=== PATIENT | female | born 1990 | race Caucasian/White ===

== ENCOUNTER 2019-06-01 10:04 | Emergency (ER) | payer MEDICARE, OTHER ==
[~2019-06-01] VITALS: Ht 165.1 cm; Wt 63.5 kg
--- OUTSIDE RECORDS SUMMARY | 2019-06-01 10:07 | XMS REPORT ---
[facility] Address Unknown Phone Unavailable Care Team Providers Care Last Picker Name Role Phone Unavailable Unavailable Payers Payer Name Policy Type Policy Number Effective Date Expiration Date Problems This patient has no known problems. Allergies, Adverse Reactions, Alerts Allergy Name Allergy Type Status Severity Reaction(s) Onset Date Inactive Date Treating Clinician Comments oxcarbazepine DA Active U 2018-07-29 00:00:00 amitriptyline DA Active U 2017-12-22 00:00:00 quetiapine DA Active U 2017-12-22 00:00:00 Medications This patient has no known medications. Results Test Description Test Time Test Comments Text Results Atomic Results Result Comments - CT ABD PELVIS W/CONT 2019-05-10 15:59:00 Patient Name: MONIQUE MIGUEL Unit No: [id number] EXAMS: CPT CODE: [id number] CT ABD PELVIS W/CONT 86334 Reason: abd pain Technique: Routine 5 mm transverse images through the abdomen and pelvis were acquired following the administration of 80 mL Isovue-300 intravenous contrast. Oral contrast was not administered. FINDINGS: Lack of oral contrast reduces ability to detect bowel related findings. Lung bases are clear. Visualized portions of heart and pericardium demonstrate nothing unusual. In the abdomen, the liver and spleen are normal in size and attenuation without focal abnormality. Gallbladder, common bile duct, pancreas, adrenal glands, abdominal aorta and kidneys demonstrate nothing unusual. There is no retroperitoneal or mesenteric adenopathy. There are no dilated loops of bowel. No ascites. No free intraperitoneal air identified. In the pelvis, urinary bladder is unremarkable. Uterus is anteverted and anteflexed. No free fluid is identified within the pelvis. No pelvic adenopathy. IMPRESSION: No acute inflammatory process identified within abdomen or pelvis. Lack of IV contrast reduces ability to detect abnormalities involving loops of bowel. No abnormal masses. No focal fluid collections. No ascites. No free intraperitoneal air. at 1559 Reported and signed by: Rafa Hodges MD CC: Erwin Causey MD; Malia Howard DO Technologist: Axel Pablo CT; Flaco Matthews CT Trscrpt Dt/ ([id number] Orig Print D/T: S: 05/10/2019 (4302) CTDI: DLP: [facility] NAME: MONIQUE MIGUEL [address] [facility] PHYS: [place] [phone] : 1990 AGE: 28 SEX: F LOC: [facility] PHONE #: [phone] EXAM DATE: 05/10/2019 STATUS: REG ER FAX #: RAD NO: DC Dt: PAGE 1 Signed Report - US TRANSVAGINAL NON OB 2019-05-10 14:48:00 Patient Name: MONIQUE MIGUEL Unit No: [id number] EXAMS: CPT CODE: [id number] [place] [address] INDICATION: Left lower quadrant pain TECHNIQUE: Multiple trans-abdominal and endovaginal ultrasound images of the pelvis were obtained. FINDINGS: The uterus measures 7.5 x 3.5 x 3.8 cm and has a normal myometrial echotexture. The endometrial echo complex measures 2 mm. The right ovary measures 4.1 x 2.5 x 2.7 cm, with normal color and spectral Doppler flow. Within the right ovary, as there is a 3.3 x 2.1 x 2.1 cm cyst with internal septation. There is no associated nodularity or vascu larity. The left ovary measures 2.6 x 1.6 x 1.5 cm, and has a normal echotexture with a few follicles within it. Normal color Doppler flow within the left ovarian parenchyma. No adnexal masses. Tiny fluid noted in the cul-de-sac. IMPRESSION: 1. Normal appearance of the left ovary. 2. Prominent cyst in the right ovary measures 3.3 cm. 3. Tiny free fluid appreciated. at 1447 Reported and signed by: Armando Rios MD CC: Erwin Causey MD; Malia Howard DO Technologist: Sarah Bolden US ; [id number] 02/16 Trnscrbd D/ (1628) [id number].[email or web address].[id number] Orig Print D/T: S: 05/10/2019 (0411) Probe: [facility] NAME: MONIQUE MIGUEL [address] PHYS: [place] [phone] : 1990 AGE: 28 SEX: F LOC: [place] PHONE #: [phone] EXAM DATE: 05/10/2019 STATUS: REG ER FAX #: RAD NO: Page 1 Signed Report - US PELVIC COMPLETE 2019-05-10 14:48:00 Patient Name: MONIQUE MIGUEL Unit No: [id number] EXAMS: CPT CODE: [id number] US PELVIC COMPLETE 62512 INDICATION: Left lower quadrant pain TECHNIQUE: Multiple trans-abdominal and endovaginal ultrasound images of the pelvis were obtained. FINDINGS: The uterus measures 7.5 x 3.5 x 3.8 cm and has a normal myometrial echotexture. The endometrial echo complex measures 2 mm. The right ovary measures 4.1 x 2.5 x 2.7 cm, with normal color and spectral Doppler flow. Within the right ovary, as there is a 3.3 x 2.1 x 2.1 cm cyst with internal septation. There is no associated nodularity or vascu larity. The left ovary measures 2.6 x 1.6 x 1.5 cm, and has a normal echotexture with a few follicles within it. Normal color Doppler flow within the left ovarian parenchyma. No adnexal masses. Tiny fluid noted in the cul-de-sac. IMPRESSION: 1. Normal appearance of the left ovary. 2. Prominent cyst in the right ovary measures 3.3 cm. 3. Tiny free fluid appreciated. at 1442 Reported and signed by: Armando Rios MD CC: Erwin Causey MD; Malia Howard DO Technologist: Sarah Bolden Trnscrbd D/ (9645) t.[email or web address].MMC3 Orig Print D/T: S: 05/10/2019 (1963) Probe: [facility] NAME: MONIQUE MIGUEL [address] PHYS: [place] [id number] : 1990 AGE: 28 SEX: F LOC: [place] PHONE #: [phone] EXAM DATE: 05/10/2019 STATUS: REG ER FAX #: RAD NO: Page 1 Signed Report UA RFLX MICROSCOPIC CULTURE 2019-05-10 13:31:00 UA COLOR (test code=COLU) YELLOW YELLOW UA APPEARANCE (test code=APPU) HAZY CLEAR UA GLUCOSE DIPSTICK (test code=DGLUU) NEGATIVE mg/dL NEGATIVE UA BILIRUBIN DIPSTICK (test code=BILU) NEGATIVE NEGATIVE UA KETONE DIPSTICK (test code=KETU) NEGATIVE mg/dL NEGATIVE UA SPECIFIC GRAVITY (test code=SGU) 1.020 1.001-1.035 UA BLOOD DIPSTICK (test code=NEEL) 2+ NEGATIVE UA PH DIPSTICK (test code=TIEN) 5.0 5.5-7.0 UA PROTEIN DIPSTICK (test code=PROU) NEGATIVE mg/dL NEGATIVE UA UROBILINOGEN DIPSTICK (test code=URO) NORMAL mg/dL NORMAL UA NITRITE DIPSTICK (test code=YARI) NEGATIVE NEGATIVE UA LEUKOCYTE ESTERASE DIPSTICK (test code=LEUU) NEGATIVE NEGATIVE UA COMMENT (test code=COMU) VOLUME 10-12 ML URINE SPECIMEN DESCRIPTION (test code=UASPEC) Clean Catch UA WBC (test code=WBCU) < 10 #/hpf <10 UA SQUAMOUS CELLS (test code=SQU) 20 - 40 #/lpf <100 UA CULTURE NEEDED? (test code=UACULT) Criteria not met UA [id number] 13:31:00* Test Item Value Reference Range Comments UA RBC (test code=RBCU) 0-2 #/hpf NONE SEEN UA MUCUS (test code=MUCU) RARE #/lpf NONE SEEN COMPREHENSIVE METABOLIC [id number] 13:28:00* Test Item Value Reference Range Comments SODIUM (test code=NA) 139 MMOL/L 133-145 POTASSIUM (test code=K) 4.2 MMOL/L 3.6-5.2 CHLORIDE (test code=CL) 105 MMOL/L 100-108 CARBON DIOXIDE (test code=CO2) 27 MMOL/L 22-32 GLUCOSE (test code=GLU) 91 MG/DL 65-99 Results of this assay method may be falsely depressed orelevated if patient is taking sulfasalazine. BLOOD UREA NITROGEN (test code=BUN) 15 MG/DL 6-20 GLOMERULAR FILTRATION RATE (test code=GFR) 54 71-165 Reporting units: mL/min/1.73m\S\2 (Modified MDRD Formula) CREATININE (test code=CREAT) 1.18 MG/DL 0.60-1.00 TOTAL PROTEIN (test code=PROT) 6.7 G/DL 6.4-8.2 ALBUMIN (test code=ALB) 3.8 G/DL 3.4-5.0 GLOBULIN (test code=GLOB) 2.9 G/DL 1.5-3.8 ALBUMIN/GLOBULIN RATIO (test code=A/G) 1.3 1.1-2.2 CALCIUM (test code=CA) 8.5 MG/DL 8.7-10.5 BILIRUBIN TOTAL (test code=BILT) 0.1 MG/DL 0.0-1.0 SGOT/AST (test code=AST) 21 Units/L 15-37 Results of this assay method may be falsely depressed orelevated if patient is taking sulfasalazine. SGPT/ALT (test code=ALT) 29 Units/L 30-65 Results of this assay method may be falsely depressed orelevated if patient is taking sulfasalazine. ALKALINE PHOSPHATASE TOTAL (test code=ALKP) 53 Units/L 50-136 [id number] 13:28:00* Test Item Value Reference Range Comments LIPASE (test code=LIP) 100 Units/L 73-393 HCG SERUM [id number] 13:18:00* Test Item Value Reference Range Comments HCG SERUM QUAL (test code=HCGQL) NEGATIVE NEGATIVE False negatives may occur when levels of hCGare below 10 mIU/ml. When is still suspected, a new specimenshould be obtained after 48 hours and re-tested.If waiting 48 hours is not medically advisable,the test result should be confirmed using aquantitative hCG assay. UA RFLX MICROSCOPIC [id number] 13:14:00* Test Item Value Reference Range Comments UA COLOR (test code=COLU) YELLOW YELLOW UA APPEARANCE (test code=APPU) HAZY CLEAR UA GLUCOSE DIPSTICK (test code=DGLUU) NEGATIVE mg/dL NEGATIVE UA BILIRUBIN DIPSTICK (test code=BILU) NEGATIVE NEGATIVE UA KETONE DIPSTICK (test code=KETU) NEGATIVE mg/dL NEGATIVE UA SPECIFIC GRAVITY (test code=SGU) 1.020 1.001-1.035 UA BLOOD DIPSTICK (test code=NEEL) 2+ NEGATIVE UA PH DIPSTICK (test code=TIEN) 5.0 5.5-7.0 UA PROTEIN DIPSTICK (test code=PROU) NEGATIVE mg/dL NEGATIVE UA UROBILINOGEN DIPSTICK (test code=URO) NORMAL mg/dL NORMAL UA NITRITE DIPSTICK (test code=YARI) NEGATIVE NEGATIVE UA LEUKOCYTE ESTERASE DIPSTICK (test code=LEUU) NEGATIVE NEGATIVE UA COMMENT (test code=COMU) VOLUME 10-12 ML URINE SPECIMEN DESCRIPTION (test code=UASPEC) Clean Catch UA WBC (test code=WBCU) #/hpf <10 UA SQUAMOUS CELLS (test code=SQU) #/lpf <100 UA CULTURE NEEDED? (test code=UACULT) UA [id number] 13:14:00* Test Item Value Reference Range Comments UA RBC (test code=RBCU) #/hpf NONE SEEN UA RFLX MICROSCOPIC [id number] 13:14:00* Test Item Value Reference Range Comments UA COLOR (test code=COLU) YELLOW YELLOW UA APPEARANCE (test code=APPU) HAZY CLEAR UA GLUCOSE DIPSTICK (test code=DGLUU) NEGATIVE mg/dL NEGATIVE UA BILIRUBIN DIPSTICK (test code=BILU) NEGATIVE NEGATIVE UA KETONE DIPSTICK (test code=KETU) NEGATIVE mg/dL NEGATIVE UA SPECIFIC GRAVITY (test code=SGU) 1.020 1.001-1.035 UA BLOOD DIPSTICK (test code=NEEL) 2+ NEGATIVE UA PH DIPSTICK (test code=TIEN) 5.0 5.5-7.0 UA PROTEIN DIPSTICK (test code=PROU) NEGATIVE mg/dL NEGATIVE UA UROBILINOGEN DIPSTICK (test code=URO) NORMAL mg/dL NORMAL UA NITRITE DIPSTICK (test code=YARI) NEGATIVE NEGATIVE UA LEUKOCYTE ESTERASE DIPSTICK (test code=LEUU) NEGATIVE NEGATIVE UA COMMENT (test code=COMU) VOLUME 10-12 ML URINE SPECIMEN DESCRIPTION (test code=UASPEC) Clean Catch UA WBC (test code=WBCU) #/hpf <10 UA SQUAMOUS CELLS (test code=SQU) #/lpf <100 UA CULTURE NEEDED? (test code=UACULT) UA [id number] 13:14:00* Test Item Value Reference Range Comments UA RBC (test code=RBCU) #/hpf NONE SEEN CBC W/AUTO [id number] 13:10:00* Test Item Value Reference Range Comments WHITE BLOOD CELL (test code=WBC) 5.85 x10 3/uL 4.80-10.80 RED BLOOD CELL (test code=RBC) 3.73 x10 6/uL 4.2-5.4 HEMOGLOBIN (test code=HGB) 12.8 G/DL 12.0-16.0 HEMATOCRIT (test code=HCT) 37.7 % 37-47 MEAN CELL VOLUME (test code=MCV) 101.1 FL 81-99 MEAN CELL HGB (test code=MCH) 34.3 PG 27-31 MEAN CELL HGB CONCENTRATION (test code=MCHC) 34.0 G/DL 33-37 RED CELL DISTRIBUTION WIDTH (test code=RDW) 12.1 % 11.5-14.5 PLATELET COUNT (test code=PLT) 235 x10 3/uL 150-450 MEAN PLATELET VOLUME (test code=MPV) 9.5 FL 7.4-10.4 NEUTROPHIL % (test code=NT%) 41.9 % 42-86 IMMATURE GRANULOCYTE % (test code=IG%) 0.3 % 0.0-2.0 LYMPHOCYTE % (test code=LY%) 45.0 % 24-44 MONOCYTE % (test code=MO%) 9.9 % 0.0-4.0 EOSINOPHIL % (test code=EO%) 2.2 % 0.0-2.7 BASOPHIL % (test code=BA%) 0.7 % 0.0-0.5 NUCLEATED RBC % (test code=NRBC%) 0.0 % 0.0-0.0 NEUTROPHIL # (test code=NT#) 2.45 x10 3/uL 1.8-7.7 IMMATURE GRANULOCYTE # (test code=IG#) 0.02 x10 3/uL 0.00-0.03 LYMPHOCYTE # (test code=LY#) 2.63 x10 3/uL 1.0-4.8 MONOCYTE # (test code=MO#) 0.58 x10 3/uL 0.0-0.8 EOSINOPHIL # (test code=EO#) 0.13 x10 3/uL 0.0-0.5 BASOPHIL # (test code=BA#) 0.04 x10 3/uL 0.0-0.2 NUCLEATED RBC # (test code=NRBC#) 0.0 X10 3/uL 0.0-0.2
--- OUTSIDE RECORDS SUMMARY | 2019-06-01 10:07 | XMS REPORT | Clinical Summary ---
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 06/29/2019 Active polyethylene glycol Take 17 g by 30 packet 0 (MIRALAX) 17 gram packet mouth daily 9 for 30 days. Active Problems Not on file Encounters Care Team Description Date Type Specialty Jonah Faria MD Abdominal pain, unspecified abdominal location (Primary Dx); Other constipation 05/30/2019 Emergency Emergency Medicine 05/30/2019 Travel [place] Nick Viera MD Visit for wound check (Primary Dx) 05/25/2019 Emergency Emergency Medicine after 05/31/2018 Social History Date Tobacco Use Types Packs/Day Years Used Never Smoker Smokeless Tobacco: Never Used Alcohol Use Drinks/Week oz/Week Comments Never Alcohol Habits Answer Date Recorded How often do you have a drink containing alcohol? Never 05/25/2019 How many drinks containing alcohol do you have on Not asked a typical day when you are drinking? How often do you have six or more drinks on one Not asked occasion? Sex Assigned at Date Recorded Not on file Industry Job Start Date Occupation Not on file Not on file Not on file Travel End Travel History Travel Start No recent travel history available. Last Filed Vital Signs Time Taken Vital Sign Reading 05/30/2019 2:30 PM CDT Blood Pressure 107/57 05/30/2019 2:30 PM CDT Pulse 60 05/30/2019 9:31 AM CDT Temperature 36.6 C (97.8 F) 05/30/2019 2:30 PM CDT Respiratory Rate 19 05/30/2019 2:30 PM CDT Oxygen Saturation 100% - Inhaled Oxygen - Concentration 05/30/2019 9:32 AM CDT Weight 63.5 kg (140 lb) 05/30/2019 9:32 AM CDT Height 165.1 cm (5' 5") 05/30/2019 9:32 AM CDT Body Mass Index 23.3 Plan of Treatment Health Maintenance Due Date Last Done Comments INFLUENZA VACCINE 07/02/2019 Procedures Comments Procedure Name Priority Date/Time Associated Diagnosis LACTIC ACID LEVEL, SEPSIS Timed 05/30/2019 - NOW AND REPEAT 2X EVERY 1:[address] ABDOMEN PELVIS W STAT 05/30/2019 CONTRAST 12:37 PM CDT GRAM STAIN STAT 05/30/2019 10:48 AM CDT URINE CULTURE STAT 05/30/2019 10:48 AM CDT URINALYSIS SCREEN AND STAT 05/30/2019 MICROSCOPY, WITH REFLEX 10:28 AM CDT TO CULTURE ESTIMATED GFR STAT 05/30/2019 10:06 AM CDT HCG QUALITATIVE, SERUM STAT 05/30/2019 SCREEN 10:06 AM CDT LIPASE LEVEL STAT 05/30/2019 10:06 AM CDT LACTIC ACID LEVEL, SEPSIS STAT 05/30/2019 - NOW AND REPEAT 2X EVERY 10:06 AM CDT 3 HOURS COMPREHENSIVE METABOLIC STAT 05/30/2019 PANEL 10:06 AM CDT HC COMPLETE BLD COUNT STAT 05/30/2019 W/AUTO DIFF 10:06 AM CDT after 05/31/2018 Results * Lactic acid level, SEPSIS - Now and repeat 2x every 3 hours (05/30/2019 1:27 PM CDT) Only the most recent of 2 results within the time period is included. Lactic acid 2.3 (H)Comment: Results called 0.5 - 2.2 mmol/L SUN to and read back by KWAKU BLACK 05/30/2019 [place] 14:17 [facility] Specimen Blood Performing Organization Address City/State/Zipcode Phone Number [facility] DEPARTMENT OF [address] [place] [address] PATHOLOGY AND GENOMIC MEDICINE DINO CARO [place] [address] [place] [address] HOS[address]ITAL * CT Abdomen Pelvis W Contrast (05/30/2019 12:37 PM CDT) Specimen Narrative Performed At EXAMINATION:[facility] CLINICAL HISTORY:ABDOMINAL PAINPOST OP TECHNIQUE: Multiple axial images of the abdomen and pelvis were obtained following intravenous administration of iodinated contrast. Sagittal and coronal computerized reformatted images were also obtained.Automatic exposure control and iterative reconstruction techniques used to reduce dose. COMPARISON:None. IMPRESSION: The liver, spleen, gallbladder, pancreas, adrenals and kidneys are within normal limits No significant lymphadenopathy free fluid present There is a very large amount retained stool in colon, constipation is suspected. The small bowel is nondilated No evidence of appendicitis Pelvis: Small follicles or cysts in the ovaries bilaterally right greater than left, no free fluid Summary: Very large amount retained stool in the colon, constipation is suspected. No free air. No abscess Procedure Note Interface, Radiology Results Incoming - 05/30/2019 12:49 PM CDT EXAMINATION: CT ABDOMEN PELVIS W CONTRAST CLINICAL HISTORY: ABDOMINAL PAIN POST OP TECHNIQUE: Multiple axial images of the abdomen and pelvis were obtained following intravenous administration of iodinated contrast. Sagittal and coronal computerized reformatted images were also obtained.Automatic exposure control and iterative reconstruction techniques used to reduce dose. COMPARISON: None. IMPRESSION: The liver, spleen, gallbladder, pancreas, adrenals and kidneys are within normal limits No significant lymphadenopathy free fluid present There is a very large amount retained stool in colon, constipation is suspected. The small bowel is nondilated No evidence of appendicitis Pelvis: Small follicles or cysts in the ovaries bilaterally right greater than left, no free fluid Summary: Very large amount retained stool in the colon, constipation is suspected. No free air. No abscess Performing Organization Address City/[facility]/Zipcode Phone Number [facility] [address] [place] [address] * Gram stain (05/30/2019 10:48 AM CDT) Gram stain No WBC's [place] result Many Gram positive rods [facility] Comment: HOSPITAL Specimen Information Specimen Source: Urine Specimen Site: Clean catch Specimen Urine Performing Organization Address City/State/Zipcode Phone Number [facility] DEPARTMENT [address] [address] PATHOLOGY [place] [address] HOSPITAL * Urine culture (05/30/2019 10:48 AM CDT) Urine culture Mixed padmini 10-4 col/cc [place] isolate Comment: [facility] Specimen Information HOSPITAL Specimen Source: Urine Specimen Site: Clean catch Specimen Urine Performing Organization Address City/State/Zipcode Phone Number [facility] [place] [address] PATHOLOGY AND GENOMIC MEDICINE [address] * Urinalysis screen and microscopy, with reflex to culture (05/30/2019 10:28 AM CDT) Specimen site Clean catch [facility] Color, UA Yellow [facility] Appearance, UA Slightly-Cloudy [facility] Specific 1.016 1.001 - 1.035 [place] gravity, [facility] pH, UA 5.0 5.0 - 8.5 [facility] Protein, UA Negative Negative [facility] Glucose, UA Negative Negative [facility] Ketones, UA Negative Negative [facility] Bilirubin, UA Negative Negative [facility] Blood, UA Large (A) Negative [facility] Nitrite, UA Negative Negative [facility] Urobilinogen, Negative <2.0 [facility] Leukocyte Small (A) Negative [place] esterase, UA [facility] Epithelial Many /HPF [place] cells, UA [facility] WBC, UA 4 0 - 5 /HPF [facility] RBC, UA 1 0 - 5 /HPF [facility] Bacteria, UA Trace None seen [facility] Yeast, UA None seen [facility] Yeast with None seen [place] pseudohypharafita [facility] Specimen Urine Performing Organization Address City/State/Zipcode Phone Number [facility] DEPARTMENT OF [address] [place] [phone] PATHOLOGY AND GENOMIC MEDICINE [address] * Estimated GFR (05/30/2019 10:06 AM CDT) [facility] Estimated GFR 86 mL/min/1.73 m2 [place] Comment: [facility] G1 >=90 Normal or high G2 60-89Mildly decreased [id number] Mildly to moderately decreased [id number] Moderately to severely decreased G4 15-29Severely decreased G5 <15Kidney failure The eGFR was calculated using the Chronic Kidney Disease Epidemiology Collaboration (CKD-EPI) equation. Interpretation is based on recommendations of the National Kidney Foundation-Kidney Disease Outcomes Quality Initiative (NKF-KDOQI) published in 2014. Specimen Plasma specimen Performing Organization Address City/State/Zipcode Phone Number [facility] [address] [place] [address] PATHOLOGY AND GENOMIC MEDICINE [address] * CBC with platelet and differential (05/30/2019 10:06 AM CDT) [facility] WBC 4.8 4.2 - 11.0 k/uL [facility] RBC 4.39 4.04 - 5.86 m/uL [facility] HGB 14.7 11.5 - 15.3 g/dL [facility] HCT 44.2 34.0 - 45.0 % [facility] MCV 100.7 (H) 80.0 - 98.0 fL [facility] MCH 33.5 27.0 - 34.0 pg [facility] MCHC 33.3 31.5 - 36.5 g/dL [facility] RDW - SD 43.1 37.0 - 51.0 fL [facility] MPV 9.4 7.4 - 10.4 fL [facility] Platelet count 233 150 - 400 k/uL [facility] Nucleated RBC 0.00 /100 WBC [facility] Neutrophils 44.6 36.0 - 66.0 % [facility] Lymphocytes 41.5 24.0 - 44.0 % [facility] Monocytes 10.1 (H) 0.0 - 6.0 % [facility] Eosinophils 2.5 0.0 - 6.0 % [facility] Basophils 1.1 0.0 - 1.2 % [facility] Immature 0.2 0.0 - 1.0 % [place] granulocytes [facility] Specimen Blood Performing Organization Address City/[facility] Centercode Phone Number [facility] DEPARTMENT [address] [place] [address] PATHOLOGY AND GENOMIC MEDICINE [address] * hCG qualitative, serum screen (05/30/2019 10:06 AM CDT) Pathologist [facility] hCG Negative [place] qualitative, Comment: [facility] serum The manufacturers stated [place] sensitivity of HcG test for HOSPITAL serum is >/=10 mIU/ml and urine is >/=20mIU/ml. Specimen Blood Performing Organization Address City/[facility] [place] [address] PATHOLOGY AND GENOMIC MEDICINE [address] * Lipase level (05/30/2019 10:06 AM CDT) Pathologist [facility] Lipase 30 13 - 60 U/L [facility] Specimen Plasma specimen Performing Organization Address City/[facility] Centercode Phone Number [facility] [place] [address] PATHOLOGY AND GENOMIC MEDICINE [address] * Comprehensive metabolic panel (05/30/2019 10:06 AM CDT) Pathologist [facility] Sodium 139 135 - 150 mEq/L [facility] Potassium 4.1 3.5 - 5.0 mEq/L [facility] Chloride 102 98 - 112 mEq/L [facility] CO2 24 24 - 31 mmol/L [facility] Anion gap 13@ANIO 7 - 15 mEq/L [facility] BUN 15 7 - 18 mg/dL [facility] Creatinine 0.90 0.50 - 0.90 mg/dL [facility] Glucose 118 (H) 65 - 100 mg/dL [facility] Calcium 10.1 8.3 - 10.2 mg/dL [facility] Protein 8.1 6.3 - 8.3 g/dL [facility] Albumin 4.4 3.5 - 5.0 g/dL [facility] A/G ratio 1.2 0.7 - 3.8 [facility] Alkaline 66 0 - 104 U/L [place] phosphatase [facility] AST 22 10 - 35 U/L [facility] ALT 23 5 - 50 U/L [facility] Total bilirubin <0.3 0.2 - 1.2 mg/dL [facility] Specimen Plasma specimen Performing Organization Address City/State/Zipcode Phone Number [facility] DEPARTMENT OF [address] [place] [phone] PATHOLOGY AND GENOMIC MEDICINE [place] [address] [address] [place] [phone] HOSPITAL after 05/31/2018 Insurance Type Payer Benefit Subscriber ID Effective Phone Address Plan / Dates Group Medicaid MEDICAID MEDICAID xxxxxxxxx 2018-P resent Advance Directives Patient has advance care planning documents on file. For more information, robbin eller contact: Dino Caro [address] [place] [phone]
[2019-06-01] MEDS ORDERED: SODIUM CHLORIDE 0.9% 50ML 50 ML ONE (10:27)
[2019-06-01] MEDS ORDERED: IOPAMIDOL 370 MG/ML 200 ML INFUS..BTL INJ ONE (10:28)
[2019-06-01] MEDS ORDERED: DIATRIZOATE MEGL/DIATRIZOA SOD 30 ML BTL PO ONE (10:28)
--- NOTE | 2019-06-01 13:29 | Diagnostic Imaging Report ---
EXAM: CT Abdomen and Pelvis WITH contrast INDICATION: Abdominal Pain COMPARISON: None. TECHNIQUE: Abdomen and pelvis were scanned utilizing a multidetector helical scanner from the lung base to the pubic symphysis after administration of IV contrast. Coronal and sagittal reformations were obtained. Routine protocol was performed. Scan was performed when during portal venous phase. IV CONTRAST: 100 cc Isovue 370 ORAL CONTRAST: Gastrografin COMPLICATIONS: None RADIATION DOSE: Total DLP: 383.8 mGy*cm Dose modulation, iterative reconstruction, and/or weight based adjustment of the mA/kV was utilized to reduce the radiation dose to as low as reasonably achievable. FINDINGS: LINES and TUBES: None. LOWER THORAX: Unremarkable HEPATOBILIARY: Diffuse mild fatty liver. No evidence of focal lesion. No biliary ductal dilation. GALLBLADDER: No radio-opaque stones or sludge. No wall thickening. SPLEEN: No splenomegaly. PANCREAS: No focal masses or ductal dilatation. ADRENALS: No adrenal nodules KIDNEYS/URETERS: Kidneys enhance symmetrically. No evidence of hydronephrosis, solid mass, or stone. GI TRACT: No evidence of wall thickening or distension. There are post surgical changes of appendectomy. There is a 4 mm rounded filling defect within the ileum on series 2, image 63. PELVIC ORGANS/BLADDER: Unremarkable. LYMPH NODES: No lymphadenopathy. VESSELS: Unremarkable. PERITONEUM / RETROPERITONEUM: No free air or fluid. BONES AND SOFT TISSUES: No evidence of collection at the umbilicus. No acute osseous abnormality. CONCLUSION: Status post appendectomy. No evidence of intra-abdominal collection. Small 4 mm filling defect in the ileum, which may represent a small polyp. Diffuse mild fatty liver. Signed by: Dr. Lucila Evans MD on 06/01/2019 1:26 PM
[2019-06-01 13:35] VITALS: BP 129/69
== END 2019-06-01 13:39 | disposition home or self-care (01) ==
LOC: FSED 10:04
DX: T81.40XA Infection following a procedure, unspecified, initial encounter (principal); L02.91 Cutaneous abscess, unspecified; R10.33 Periumbilical pain; N80.9 Endometriosis, unspecified; F43.10 Post-traumatic stress disorder, unspecified; F31.9 Bipolar disorder, unspecified
CPT/HCPCS: 74177; 80048; 80076; 80307; 81003; 81025; 85025; 99284; Q9967